=== PATIENT | male | born 1955 ===

== ENCOUNTER 2022-02-10 21:21 | Inpatient (IN) | payer BC ==
[2022-02-10] MEDS ORDERED: HYDROmorphone 2 MG/ML Syringe IVPUSH ONE ×2 (22:27→22:32)
[2022-02-10 22:30] LABS: ESTIMATED GFR 33 mL/min (>60)
[2022-02-10] MEDS ORDERED: Sodium Chloride 0.9% 1,000 ML IV ONE (22:32)
[2022-02-10] MEDS: Sodium Chloride 0.9% 1,000 ML IV SCH (22:50)
[2022-02-10] MEDS ORDERED: Ondansetron 4 MG/2 ML SDV IV PRN (22:52)
[2022-02-11] MEDS ORDERED: oxyCODONE 5 MG Tab ONE ×2 (00:23→10:00)
[2022-02-11] MEDS: oxyCODONE 5 MG Tab PO PRN ×2 (00:24→10:11)
[2022-02-11] MEDS: HYDROCODONE PO SCH ×4 (00:44→22:56)
[2022-02-11] MEDS: [UNRECOGNIZED DRUG - OTHER] PO SCH ×4 (00:44→22:56)
[2022-02-11] MEDS: ACETAMINOPHEN PO SCH ×4 (00:44→22:56)
[2022-02-11] MEDS ORDERED: HYDROmorphone 2 MG/ML Syringe ONE ×3 (02:14→19:14)
[2022-02-11] MEDS: HYDROmorphone 2 MG/ML Syringe IVPUSH PRN ×3 (02:30→19:17)
[2022-02-11] MEDS ORDERED: Acetaminophen/HYDROcodone 325-5 MG Tab ONE (03:56)
[2022-02-11] MEDS: Sodium Chloride 0.9% 1,000 ML IV SCH ×2 (08:00→18:00)
[2022-02-11 09:44] LABS: ESTIMATED GFR 36 mL/min (>60)
[2022-02-11] MEDS ORDERED: Gabapentin 100 MG Cap ONE ×3 (10:00→19:43)
[2022-02-11] MEDS: Magnesium Oxide 400 MG Tab ONE ×2 (10:08→10:10)
[2022-02-11] MEDS: Gabapentin 100 MG Cap PO SCH ×3 (10:09→19:46)
[2022-02-11] MEDS: Non-Formulary Medication 1 Each (Magnesium [Magnesium] 200 MG Tablet) PO SCH (10:10)
[2022-02-11] MEDS: MINOCYCLINE 100 MG PO SCH ×2 (10:10→19:46)
[2022-02-11] MEDS ORDERED: cefTRIAXone 1 GM Vial ONE (10:20)
[2022-02-11] MEDS ORDERED: Albuterol 0.021% 0.63 MG/3 ML Neb Soln ONE (11:43)
[2022-02-11] MEDS ORDERED: fentaNYL 12 MCG/HR Transdermal Patch TRDERM SCH (12:00)
[2022-02-12] MEDS ORDERED: HYDROmorphone 2 MG/ML Syringe ONE ×4 (01:52→19:32)
[2022-02-12] MEDS: HYDROmorphone 2 MG/ML Syringe IVPUSH PRN ×4 (01:55→20:00)
[2022-02-12] MEDS ORDERED: Gabapentin 100 MG Cap ONE ×3 (08:17→19:11)
[2022-02-12] MEDS ORDERED: Magnesium Oxide 400 MG Tab ONE (08:20)
[2022-02-12] MEDS: Non-Formulary Medication 1 Each (Magnesium [Magnesium] 200 MG Tablet) PO SCH (08:22)
[2022-02-12] MEDS: Gabapentin 100 MG Cap PO SCH ×3 (08:22→19:13)
[2022-02-12] MEDS: MINOCYCLINE 100 MG PO SCH ×2 (08:23→19:13)
[2022-02-12 10:11] LABS: ESTIMATED GFR 55 mL/min (>60)
[2022-02-12] MEDS ORDERED: Magnesium Sulfate/D5W 1 GM/100 ML Premix Bag IV ONE (11:07)
[2022-02-12] MEDS: Sodium Chloride 0.9% 1,000 ML IV SCH (15:04)
[2022-02-13] MEDS ORDERED: HYDROmorphone 2 MG/ML Syringe ONE ×2 (00:52→05:45)
[2022-02-13] MEDS: HYDROmorphone 2 MG/ML Syringe IVPUSH PRN ×2 (00:54→05:53)
[2022-02-13] MEDS ORDERED: Magnesium Oxide 400 MG Tab PO SCH (08:00)
[2022-02-13] MEDS: MINOCYCLINE 100 MG PO SCH ×2 (08:00→10:51)
[2022-02-13] MEDS ORDERED: Gabapentin 100 MG Cap ONE ×2 (10:25→13:46)
[2022-02-13] MEDS ORDERED: Magnesium Oxide 400 MG Tab ONE (10:26)
[2022-02-13] MEDS: Gabapentin 100 MG Cap PO SCH ×2 (10:30→13:48)
[2022-02-13] MEDS ORDERED: oxyCODONE 5 MG Tab ONE (10:51)
[2022-02-13] MEDS: oxyCODONE 5 MG Tab PO PRN (10:52)
== END 2022-02-13 14:15 | disposition hospice, home (50) | DRG 460 ==
LOC: LB.ED 21:21 → LB.MS 22:55 → EDSEX 22:55
PROVIDERS: ADMIT Surgery; ATTEND Surgery
DX: N17.9 Acute kidney failure, unspecified (principal); G89.3 Neoplasm related pain (acute) (chronic); C20 Malignant neoplasm of rectum; C78.7 Secondary malignant neoplasm of liver and intrahepatic bile duct; E86.0 Dehydration; F17.200 Nicotine dependence, unspecified, uncomplicated; Z20.822 Contact with and (suspected) exposure to COVID-19; Z79.899 Other long term (current) drug therapy
CPT/HCPCS: 36415; 80053; 83735; 84100; 85027; 85610; A0425; A0429; A9270-GY; J1170; J3475; J7030; U0002